=== PATIENT | male | born 1980 | race Caucasian/White ===

== ENCOUNTER 2020-05-04 10:59 | Observation (INO) | payer OTHER ==
[2020-05-04] MEDS ORDERED: SODIUM CHLORIDE 0.9% 1,000 ML IV STA (11:29)
[2020-05-04] MEDS ORDERED: METOCLOPRAMIDE 5 MG/ML 2 ML VIAL IVP STA (11:30)
[2020-05-04] MEDS ORDERED: MECLIZINE 12.5 MG TAB PO STA (11:30)
--- NOTE | 2020-05-04 11:40 | ED ---
General Adult HPI - General Chief complaint: Dizziness Stated complaint: dizziness, nausea Time Seen by Provider: 05/04/20 11:20 Source: patient, RN notes reviewed Mode of arrival: wheelchair Limitations: physical limitation - History of Present Illness Initial comments: 39-year-old male presents to the emergency department for a chief, and dizziness. Patient states yesterday he was at work when he started to get dizzy. States the room is spinning around him. He states it causes him to vomit. Patient reports that he saw his primary care doctor and had blood work done. However the dizziness has not subsided and is worse today. Patient states if he opens his eyes it is worse and he feels like he is going to throw up. Patient reports that moving his head or any other type of movement makes this worse as well. Patient denies any medical problems with states he does not go to the doctor or get blood work done. Patient does have a remote 15 pack per year smoking history.Patient has no other complaints at this time including shortness of breath, chest pain, abdominal pain, nausea or vomiting, headache, or visual changes. - Related Data Home Medications Medication Instructions Recorded Confirmed Esomeprazole Magnesium [NexIUM 20 mg PO DAILY PRN 05/04/20 05/04/20 24Hr] Fluticasone Furoate [Flonase 1 spray EA NOSTRIL DAILY PRN 05/04/20 05/04/20 Sensimist] Allergies Allergy/AdvReac Type Severity Reaction Status Date / Time No Known Allergies Allergy Verified 05/04/20 12:23 Review of Systems ROS Statement: Those systems with pertinent positive or pertinent negative responses have been documented in the HPI. ROS Other: All systems not noted in ROS Statement are negative. Past Medical History Past Medical History: GERD/Reflux History of Any Multi-Drug Resistant Organisms: None Reported Additional Past Surgical History / Comment(s): visectomy Past Psychological History: No Psychological Hx Reported Smoking Status: Former smoker Past Alcohol Use History: None Reported Past Drug Use History: None Reported General Exam Limitations: physical limitation General appearance: alert, in no apparent distress Head exam: Present: atraumatic, normocephalic, normal inspection Eye exam: Present: normal appearance, PERRL, EOMI. Absent: scleral icterus, conjunctival injection, periorbital swelling ENT exam: Present: normal exam, mucous membranes moist Neck exam: Present: normal inspection, full ROM. Absent: tenderness, mening ismus, lymphadenopathy Respiratory exam: Present: normal lung sounds bilaterally. Absent: respiratory distress, wheezes, rales, rhonchi, stridor Cardiovascular Exam: Present: regular rate, normal rhythm, normal heart sounds. Absent: systolic murmur, diastolic murmur, rubs, gallop, clicks GI/Abdominal exam: Present: soft, normal bowel sounds. Absent: distended, tenderness, guarding, rebound, rigid Neurological exam: Present: alert, oriented X3 Expanded Patient oriented to: Present: person, place, time Speech: Present: fluid speech Cranial nerves: EOM's Intact: Normal, Tongue Deviation: Normal, Nystagmus: Normal, Facial Sensation: Normal Cerebellar function: Finger to Nose: Normal Upper motor neuron: Pronator Drift: Normal Sensory exam: Upper Extremity Light Touch: Normal, Upper Extremity Pin Prick: Normal, Lower Extremity Light Touch: Normal, Lower Extremity Pin Prick: Normal Motor strength exam: RUE: 5, LUE: 5, RLE: 5, LLE: 5 Eye Response: (4) open spontaneously Motor Response: (6) obeys commands Verbal Response: (5) oriented Humberto Total: 15 Course Vital Signs 05/04/20 05/04/20 11:04 13:52 Temperature 97.7 F 98.1 F Pulse Rate 69 73 Respiratory 18 14 Rate Blood Pressure 131/87 130/90 O2 Sat by Pulse 98 98 Oximetry Medical Decision Making - Medical Decision Making Vitals are stable. CBC CMP unremarkable. Troponin is negative. CT brain shows no acute cranial hemorrhage, mass effect, or midline shift. CT angiogram head and neck showed no significant abnormality seen. Patient does have horizontal and vertical nystagmus on exam. I did give patient several different m edications such as Antivert, Reglan, and Valium and felt better however continued to have very ataxic gait. At this time patient will be admitted for neurology consultation. - Lab Data Result diagrams: 05/04/20 11:35 05/04/20 11:35 Lab Results 05/04/20 05/04/20 05/04/20 Range/Units 11:35 11:35 11:35 WBC 5.9 (3.8-10.6) k/uL RBC 5.05 (4.30-5.90) m/uL Hgb 14.6 (13.0-17.5) gm/dL Hct 44.8 (39.0-53.0) % MCV 88.8 (80.0-100.0) fL MCH 28.9 (25.0-35.0) pg MCHC 32.5 (31.0-37.0) g/dL RDW 12.7 (11.5-15.5) % Plt Count 223 (150-450) k/uL Neutrophils % 75 % Lymphocytes % 18 % Monocytes % 4 % Eosinophils % 1 % Basophils % 1 % Neutrophils # 4.4 (1.3-7.7) k/uL Lymphocytes # 1.1 (1.0-4.8) k/uL Monocytes # 0.3 (0-1.0) k/uL Eosinophils # 0.1 (0-0.7) k/uL Basophils # 0.0 (0-0.2) k/uL PT 9.7 (9.0-12.0) sec INR 0.9 (<1.2) APTT 21.8 L (22.0-30.0) sec Sodium 138 (137-145) mmol/L Potassium 4.9 (3.5-5.1) mmol/L Chloride 106 (98-107) mmol/L Carbon Dioxide 25 (22-30) mmol/L Anion Gap 7 mmol/L BUN 13 (9-20) mg/dL Creatinine 0.69 (0.66-1.25) mg/dL Est GFR (CKD-EPI)AfAm >90 (>60 ml/min/1.73 sqM) Est GFR (CKD-EPI)NonAf >90 (>60 ml/min/1.73 sqM) Glucose 190 H (74-99) mg/dL Calcium 9.0 (8.4-10.2) mg/dL Total Bilirubin 0.8 (0.2-1.3) mg/dL AST 27 (17-59) U/L ALT 24 (4-49) U/L Alkaline Phosphatase 59 (38-126) U/L Troponin I (0.000-0.034) ng/mL Total Protein 6.9 (6.3-8.2) g/dL Albumin 4.5 (3.5-5.0) g/dL 05/04/20 Range/Units 11:35 WBC (3.8-10.6) k/uL RBC (4.30-5.90) m/uL Hgb (13.0-17.5) gm/dL Hct (39.0-53.0) % MCV (80.0-100.0) fL MCH (25.0-35.0) pg MCHC (31.0-37.0) g/dL RDW (11.5-15.5) % Plt Count (150-450) k/uL Neutrophils % % Lymphocytes % % Monocytes % % Eosinophils % % Basophils % % Neutrophils # (1.3-7.7) k/uL Lymphocytes # (1.0-4.8) k/uL Monocytes # (0-1.0) k/uL Eosinophils # (0-0.7) k/uL Basophils # (0-0.2) k/uL PT (9.0-12.0) sec INR (<1.2) APTT (22.0-30.0) sec Sodium (137-145) mmol/L Potassium (3.5-5.1) mmol/L Chloride (98-107) mmol/L Carbon Dioxide (22-30) mmol/L Anion Gap mmol/L BUN (9-20) mg/dL Creatinine (0.66-1.25) mg/dL Est GFR (CKD-EPI)AfAm (>60 ml/min/1.73 sqM) Est GFR (CKD-EPI)NonAf (>60 ml/min/1.73 sqM) Glucose (74-99) mg/dL Calcium (8.4-10.2) mg/dL Total Bilirubin (0.2-1.3) mg/dL AST (17-59) U/L ALT (4-49) U/L Alkaline Phosphatase (38-126) U/L Troponin I <0.012 (0.000-0.034) ng/mL Total Protein (6.3-8.2) g/dL Albumin (3.5-5.0) g/dL Disposition Clinical Impression: Ataxia, Vertigo Disposition: ADMITTED IP TO THIS HOSP Condition: Fair Is patient prescribed a controlled substance at d/c from ED?: No Referrals: Matthew Morales MD [Primary Care Provider] - 1-2 days Time of Disposition: 13:59
[2020-05-04 11:57] LABS: Basophils % (A) 1 %; Eosinophils # (A) 0.1 k/uL (0-0.7); Eosinophils % (A) 1 %; HCT 44.8 % (39.0-53.0); HGB 14.6 gm/dL (13.0-17.5); Lymphocytes # (A) 1.1 k/uL (1.0-4.8); Lymphocytes % (A) 18 %; MCH 28.9 pg (25.0-35.0); MCHC 32.5 g/dL (31.0-37.0); MCV 88.8 fL (80.0-100.0); Mean Platelet Volume 7.1; Monocytes # (A) 0.3 k/uL (0-1.0); Monocytes % (A) 4 %; Neutrophils # (A) 4.4 k/uL (1.3-7.7); Neutrophils % (A) 75 %; Platelet Count 223 k/uL (150-450); RBC 5.05 m/uL (4.30-5.90); RDW 12.7 % (11.5-15.5); WBC 5.9 k/uL (3.8-10.6)
[2020-05-04 12:15] LABS: ALT 24 U/L (4-49); AST 27 U/L (17-59); African American GFR (CKD) >90 (>60 ml/min/1.73 sqM); Albumin 4.5 g/dL (3.5-5.0); Alkaline Phosphatase 59 U/L (38-126); Anion Gap 7 mmol/L; Blood Urea Nitrogen 13 mg/dL (9-20); Carbon Dioxide 25 mmol/L (22-30); Chloride 106 mmol/L (98-107); Glucose 190 mg/dL (74-99); Non-African American GFR(CKD) >90 (>60 ml/min/1.73 sqM); Potassium 4.9 mmol/L (3.5-5.1); Sodium 138 mmol/L (137-145); Total Bilirubin 0.8 mg/dL (0.2-1.3); Total Protein 6.9 g/dL (6.3-8.2)
[2020-05-04 12:27] LABS: INR 0.9 (<1.2); Prothrombin Time 9.7 sec (9.0-12.0)
--- NOTE | 2020-05-04 12:29 | CT ---
EXAMINATION TYPE: CT brain wo con DATE OF EXAM: 05/04/2020 COMPARISON: None HISTORY: Dizziness,nausea CT DLP: 1089 mGycm. Automated Exposure Control for Dose Reduction was Utilized. TECHNIQUE: CT scan of the head is performed without contrast. FINDINGS: There is no acute intracranial hemorrhage, mass effect, or midline shift identified. The ventricles and sulci are within normal limits in size. The globes are intact and the visualized sin uses are clear. IMPRESSION: No acute intracranial hemorrhage, mass effect, or midline shift is seen.
[2020-05-04 12:36] LABS: Partial Thromboplastin Time 21.8 sec (22.0-30.0)
[2020-05-04] MEDS ORDERED: DIAZEPAM 5 MG/ML 2 ML INJ IVP STA (12:36)
--- NOTE | 2020-05-04 12:47 | CT ---
EXAMINATION TYPE: CT angio head neck DATE OF EXAM: 05/04/2020 HISTORY: Dizziness, nausea COMPARISON: CT DLP: 1060 mGycm. Automated Exposure Control for Dose Reduction was Utilized. TECHNIQUE: CTA scan of the neck is performed without and with IV Contrast, patient injected with 100 ml mL of Isovue 370, axial images are obtained, coronal and sagittal reformatted images are reviewed . Three-D reconstructed images are created on an independent workstation and reviewed. FINDINGS: The carotid systems are patent. Vertebral arteries are fairly symmetric in size. Carotid bi furcations patent visualized common carotid arteries patent. Bilateral subclavian arteries patent. Vertebrobasilar and carotid systems are patent. No sizable aneurysm or vascular malformation IMPRESSION: No significant abnormality is seen.
[2020-05-04] MEDS ORDERED: NALOXONE 0.4 MG/ML 1 ML VIAL IV PRN (13:32)
[2020-05-04] MEDS ORDERED: MECLIZINE 25 MG TAB PO PRN (13:44)
[2020-05-04] MEDS: METOCLOPRAMIDE 5 MG/ML 2 ML VIAL IVP SCH ×2 (13:52→21:04)
[2020-05-04] MEDS ORDERED: PANTOPRAZOLE 40 MG TABLET PO PRN (16:05)
[2020-05-04] MEDS ORDERED: MELATONIN 3 MG TABLET PO PRN (16:05)
[2020-05-04] MEDS ORDERED: MAG HYDROX/AL HYDROX/SIMETH 30 ML CUP PO PRN (16:05)
[2020-05-04] MEDS ORDERED: ONDANSETRON 4 MG/2 ML VIAL IVP PRN (16:05)
[2020-05-04] MEDS ORDERED: MAGNESIUM HYDROXIDE 2,400 MG/10 ML CUP PO PRN (16:05)
[2020-05-04] MEDS ORDERED: CALCIUM CARBONATE 500 MG CHEWABLE PO PRN (16:05)
[2020-05-04] MEDS ORDERED: ACETAMINOPHEN TAB 325 MG TAB PO PRN (16:05)
[2020-05-04] MEDS ORDERED: ALPRAZolam 0.25 MG TAB PO PRN (16:05)
[2020-05-04] MEDS ORDERED: LACTULOSE 20 GM/30 ML CUP PO PRN (16:05)
[2020-05-04] MEDS: ENOXAPARIN 40 MG/0.4 ML SYRINGE SQ SCH (16:52)
[2020-05-04] MEDS ORDERED: ASPIRIN 325 MG TAB PO STA (17:27)
--- NOTE | 2020-05-04 17:28 | P.CNNES ---
History of Present Illness Consult date: 05/04/20 Requesting physician: Dheeraj Jiang Reason for Consult: Intractable vertigo, ataxic gait History of Present Illness: Patient is a 39-year-old male, came to the ER today at 11 AM for evaluation of dizziness. Patient states that his symptoms started yesterday morning. Patient woke up at 4:30 AM and was feeling fine. He had his breakfast as usual, and went to work. He had just arrived at work at 6:30 AM, put lunch box down and and suddenly started noticing spinning with nausea but no vomiting. It lasted for 2 minutes. He went to the break room, grabbed a cup of coffee, was going back to the desk when it started again and it lasted for 5 minutes. He called his who picked him up and went home. He went to his primary physician's office, where he underwent EKG and some testing, everything was fine. He was recommended to take some fluids and rest. Patient states that his symptoms got worse, and now it's not going away. Whenever he opens his eyes, starts spinning. His back of head hurts, feels nauseous. He vomited 3 times. Patient denies any double vision, focal numbness tingling weakness. Patient's blood pressure on arrival was 131/87, pulse rate 69, temperature 97.7. He underwent CT head showed no acute intracranial hemorrhage, mass effect or midline shift. CTA of head and neck is normal. EKG shows normal sinus rhythm. CBC, PT/PTT, Chem-20 is normal. Patient denies diabetes, denies hypertension. He has smoked 1 pack per day for 15 years, quit 9 years ago. Denies any alcohol. Denies any recent or remote head trauma. He denies any history of vertigo ever in the past. Denies any history of focal numbness tingling. No family history of multiple sclerosis. Review of Systems As mentioned above in HPI. All other review of systems completely unremarkable. Patient works as a [employer]. Past Medical History Past Medical History: GERD/Reflux Additional Past Medical History / Comment(s): Sinus allergies History of Any Multi-Drug Resistant Organisms: None Reported Additional Past Surgical History / Comment(s): Vasectomy, cyst removed from neck. Past Anesthesia/Blood Transfusion Reactions: No Reported Reaction Smoking Status: Former smoker - Past Family History Father Additional Family Medical History / Comment(s): Gallbladder surgery Mother Family Medical History: Liver Disease Additional Family Medical History / Comment(s): Hepatitis B Medications and Allergies Home Medications Medication Instructions Recorded Confirmed Type Esomeprazole Magnesium [NexIUM 20 mg PO DAILY PRN 05/04/20 05/04/20 History 24Hr] Fluticasone Furoate [Flonase 1 spray EA NOSTRIL DAILY PRN 05/04/20 05/04/20 History Sensimist] Allergies Allergy/AdvReac Type Severity Reaction Status Date / Time No Known Allergies Allergy Verified 05/04/20 12:23 Physical Examination - Vital Signs Vital Signs: Vital Signs Temp Pulse Resp BP Pulse Ox 05/04/20 13:52 98.1 F 73 14 130/90 98 05/04/20 11:04 97.7 F 69 18 131/87 98 Intake and Output 05/03/20 05/04/20 05/04/20 22:59 06:59 14:59 Other: Weight 128.367 kg On examination patient is a middle aged male, who appears to be in distress because of vertigo. He is keeping his eyes closed. Mental status, speech and language functions are normal. Attention, concentration and fund of knowledge adequate. Speech and language functions are normal with no aphasia or dysarthria. On cranial nerve examination, pupils are round and reacting to light. Visual uriarte are full on confrontation. Patient has horizontal nystagmus in the primary gaze, which continues with and is bilaterally, right w orse than left. Face is symmetric, tongue protrudes the midline. Palatal elevation and sensation normal. Hearing and shoulder shrug normal. On muscle strength testing there is no pronator drift and the strength is normal in arms and legs distally and proximally. Reflexes are 1+ and plantars downgoing. Sensory touch is equal with no neglect. No ataxia for [id number] or [id number] testing. Tone and bulk of muscles normal. No bruit or murmur, peripheral pulses present. Abdomen is soft nontender, chest clear. Results - Laboratory Findings CBC and BMP: 05/04/20 11:35 05/04/20 11:35 Abnormal Lab Findings: Abnormal Labs 05/04/20 05/04/20 11:35 11:35 APTT 21.8 L Glucose 190 H Assessment and Plan Assessment: * 39-year-old male with acute onset of vertigo with nausea. Examination revealed nystagmus in the primary gaze. Probable labyrinthitis. Cerebellar infarct less likely. * X tobacco use Plan: * Patient had a normal CTA of head and neck. * We will check MRI of the brain to rule out a cerebellar CVA. * If CVA ruled out, then would recommend a Medrol Dosepak. * Antivert for vertigo, Zofran/Reglan for nausea as needed. * Start aspirin 325 mg daily, until CVA ruled out.
[2020-05-04 23:46] LABS: Hemoglobin A1C 6.4 % (4.0-6.0)
[2020-05-05] MEDS: METOCLOPRAMIDE 5 MG/ML 2 ML VIAL IVP SCH ×2 (02:09→08:54)
[2020-05-05] MEDS: ENOXAPARIN 40 MG/0.4 ML SYRINGE SQ SCH (08:54)
--- NOTE | 2020-05-05 09:23 | MR ---
MR brain without contrast HISTORY: Vertigo, nausea Metastases Multiplanar multisequence imaging through the brain Correlation CT brain 05/04/2020 There is no restricted diffusion. There is no hemorrhage or hydrocephalus. Corpus callosum, cervical medullary junction, cerebellopontine angles are normal. There are normal vascular flow voids. Orbits show symmetric appearance. Paranasal sinuses are remarkable for possible mucus retention cyst in the right maxillary sinus. Brain signal is normal. There is a partially empty sella. IMPRESSION: No acute brain abnormality. Sinus disease.
[2020-05-05 10:32] VITALS: BP 149/83; PULSE 97; RESP 10; TEMP 98.2
[2020-05-05] MEDS ORDERED: predniSONE 20 MG TAB PO SCH (11:30)
[2020-05-05] MEDS: MECLIZINE 25 MG TAB PO SCH ×2 (11:57→13:01)
--- NOTE | 2020-05-05 23:38 | P.HPIM ---
History of Present Illness H&P Date: 05/05/20 Chief Complaint: Acute dizziness History of presenting complaint: This is a very pleasant 39-year-old patient of Dr. Matthew Morales. Patient had coronary to work yesterday morning. Then he became rather suddenly very dizzy. Things were spinning. Cannot really focus with his eyes. Became nauseated. Had bit of a headache. Nausea and vomiting. Decided to come in. No focal weakness of the arms or legs. Review of systems: GEN.: Tired EYES: [As above HEENT: As above NECK: None RESPIRATORY: None CARDIOVASCULAR: No chest pain GASTROINTESTINAL: None GENITOURINARY: None MUSCULOSKELETAL: None LYMPHATICS: None HEMATOLOGICAL: None PSYCHIATRY: None NEUROLOGICAL: None Past medical history to include: GERD, sinus ALLERGIES Social history: , smoked for 18 years. In 2010. Alcohol occasional. Employed. Physical examination: VITAL SIGNS: 98, 102, 17, 1 5582, 97% on room air GENERAL: BMI 38.4, laying in bed slightly tired. EYES: Pupils equal. Conjunctiva normal. HEENT: External appearance of nose and ears normal, oral cavity grossly normal. NECK: JVD not raised; masses not palpable. HEART: First and second heart sounds are normal; no edema. LUNGS: Respiratory rate normal; clear to auscultation. ABDOMEN: Soft, nontender, liver spleen not palpable, no masses palpable. PSYCH: Alert and oriented x3; mood and affect normal. NEUROLOGICAL: Cranial nerves grossly intact; no facial asymmetry, power and sensation grossly intact. LYMPHATICS: No lymph nodes palpable in the axilla and neck INVESTIGATIONS, reviewed in the clinical context: White count 5.9 hemoglobin 14.6 potassium 4.9 creatinine 0.69 Troponin I negative EKG tracing personally reviewed by me-no sinus rhythm Computed tomography scan of the brain, CT angiogram brain-both negative Assessment: -This patient presented acute episode of dizziness and room spinning around altered vision nausea vomiting. Appears to be acute hepatitis. Cerebral cause to be ruled out. Patient did receive Antivert. -Obesity BMI 38.4 -GERD -Hyperglycemia not diabetic at present time Plan: Patient started Antivert. Neurology was consulted. MRI of the brain was ordered. Care was discussed with the patient. Past Medical History Past Medical History: GERD/Reflux Additional Past Medical History / Comment(s): Sinus allergies History of Any Multi-Drug Resistant Organisms: None Reported Additional Past Surgical History / Comment(s): Vasectomy, cyst removed from neck. Past Anesthesia/Blood Transfusion Reactions: No Reported Reaction Smoking Status: Former smoker - Past Family History Father Additional Family Medical History / Comment(s): Gallbladder surgery Mother Family Medical History: Liver Disease Additional Family Medical History / Comment(s): Hepatitis B Medications and Allergies Home Medications Medication Instructions Recorded Confirmed Type Esomeprazole Magnesium [NexIUM 20 mg PO DAILY PRN 05/04/20 05/04/20 History 24Hr] Meclizine [Antivert] 25 mg PO QID #20 tab 05/05/20 Rx predniSONE 0 mg PO DIRECTED #10 tab 05/05/20 Rx Allergies Allergy/AdvReac Type Severity Reaction Status Date / Time No Known Allergies Allergy Verified 05/04/20 12:23 Physical Exam Vitals: Vital Signs Temp Pulse Pulse Resp BP BP Pulse Ox 05/05/20 03:00 98 F 99 16 155/82 97 05/04/20 21:18 98 F 102 H 17 162/87 96 05/04/20 14:50 97.7 F 75 16 133/91 98 05/04/20 13:52 98.1 F 73 14 130/90 98 05/04/20 11:04 97.7 F 69 18 131/87 98 Intake and Output 05/04/20 05/05/20 05/05/20 22:59 06:59 14:59 Intake Total 340 320 Balance 340 320 Intake: Oral 340 320 Other: Voiding Method Toilet # Voids 1 1 Results CBC & Chem 7: 05/04/20 11:35 05/04/20 11:35 Labs: Abnormal Lab Results - Last 24 Hours (Table) 05/04/20 05/04/20 05/04/20 Range/Units 11:35 11:35 11:35 APTT 21.8 L (22.0-30.0) sec Glucose 190 H (74-99) mg/dL Hemoglobin A1c 6.4 H (4.0-6.0) % Thrombosis Risk Factor Assmnt - Choose All That Apply Any of the Below Risk Factors Present?: Yes Each Factor Represents 1 point: Age 41-60 years, Obesity (BMI >25) Other Risk Factors: No Other congenital or acquired thrombophilia - If yes, enter type in comment: No Thrombosis Risk Factor Assessment Total Risk Factor Score: 2 Thrombosis Risk Factor Assessment Level: Low Risk
--- NOTE | 2020-05-05 23:41 | P.DS ---
Providers Date of admission: 05/04/20 13:56 Expected date of discharge: 05/05/20 Attending physician: Edmond Brewer Consults: 05/04/20 13:32 Consult Physician Routine Consulting Provider: Anabella Manning Consult Reason/Comments: intractable vertigo, ataxic gait Do you want consulting provider notified?: Yes Primary care physician: Matthew Morales [facility] Course: Chief Complaint: Acute dizziness History of presenting complaint: This is a very pleasant 39-year-old patient of Dr. Matthew Morales. Patient had coronary to work yesterday morning. Then he became rather suddenly very dizzy. Things were spinning. Cannot really focus with his eyes. Became nauseated. Had bit of a headache. Nausea and vomiting. Decided to come in. No focal weakness of the arms or legs. Computed tomography scan of the brain, CT angiogram of brain was both negative. Started Antivert. MRI of the brain was unremarkable. [place] to have acute labyrinthitis. Doing better. Cleared by Dr. Roque to go home. Patient with discharged on Antivert and tapering steroids Consultation: Dr. Roque from neurology. Physical examination: VITAL SIGNS: 98.2, 97, 10, 149/83, 97% room air GENERAL: BMI 38.4, laying in bed EYES: Pupils equal. Conjunctiva normal. HEENT: External appearance of nose and ears normal, oral cavity grossly normal. NECK: JVD not raised; masses not palpable. HEART: First and second heart sounds are normal; no edema. LUNGS: Respiratory rate normal; clear to auscultation. ABDOMEN: Soft, nontender, liver spleen not palpable, no masses palpable. PSYCH: Alert and oriented x3; mood and affect normal. NEUROLOGICAL: Cranial nerves grossly intact; no facial asymmetry, power and sensation grossly intact. Mild horizontal nystagmus INVESTIGATIONS, reviewed in the clinical context: White count 5.9 hemoglobin 14.6 potassium 4.9 creatinine 0.69 Troponin I negative EKG tracing personally reviewed by me-no sinus rhythm Computed tomography scan of the brain, CT angiogram brain-both negative MRI of the brain negative for stroke Assessment: -Acute dizziness from acute labyrinthitis -Obesity BMI 38.4 -GERD -Hyperglycemia not diabetic at present time Disposition: Home patient to return to work in 5 days Patient Condition at Discharge: Stable Plan - Discharge Summary Discharge Rx Participant: No New Discharge Prescriptions: New Meclizine [Antivert] 25 mg PO QID #20 tab predniSONE 0 mg PO DIRECTED #10 tab Continue Esomeprazole Magnesium [NexIUM 24Hr] 20 mg PO DAILY PRN PRN Reason: GERD Discontinued Fluticasone Furoate [Flonase Sensimist] 1 spray EA NOSTRIL DAILY PRN PRN Reason: Congestion Discharge Medication List Esomeprazole Magnesium [NexIUM 24Hr] 20 mg PO DAILY PRN 05/04/20 [History] Meclizine [Antivert] 25 mg PO QID #20 tab 05/05/20 [Rx] predniSONE 0 mg PO DIRECTED #10 tab 05/05/20 [Rx] Follow up Appointment(s)/Referral(s): Matthew Morales MD [Primary Care Provider] - 05/10/20 12:15 pm Activity/Diet/Wound Care/Special Instructions: Off work until seen by physician on May 10 Discharge/Stand Alone Forms: Work/School Release, Work/School Release / Restrict Discharge Disposition: HOME SELF-CARE
== END 2020-05-05 13:30 | disposition home or self-care (01) ==
LOC: EC 10:59 → 1SOBS 13:56
PROVIDERS: ADMIT Hospitalist; ATTEND Hospitalist
DX: H83.09 Labyrinthitis, unspecified ear (principal); R51 Headache; R73.9 Hyperglycemia, unspecified; K21.9 Gastro-esophageal reflux disease without esophagitis; E66.9 Obesity, unspecified; Z68.38 Body mass index [BMI] 38.0-38.9, adult; Z87.891 Personal history of nicotine dependence; Z79.899 Other long term (current) drug therapy; Z83.1 Family history of other infectious and parasitic diseases; Z83.79 Family history of other diseases of the digestive system; Z20.828 Contact with and (suspected) exposure to other viral communicable diseases
CPT/HCPCS: 96372 ×2; 96375 ×2; 96376 ×2; 96361; 96374; 99285; 36415; 93005; 80053; 84484; 85025; 85610; 85730; 83036; 70496; 70450; 70498; 70551; G0378 ×2; U0003; J2765 ×2; J3360; J2405; J1650 ×2; J7512; Q9967; 96360